=== PATIENT | male | born 2000 | race Caucasian/White ===

== ENCOUNTER 2025-01-27 20:23 | Emergency (ER) | payer OTHER ==
[~2025-01-27] VITALS: Ht 180.3 cm; Wt 105.7 kg
[2025-01-28 07:35] VITALS: BP 144/74; TEMP 97.2; O2SAT 100
[2025-01-28] MEDS ORDERED: ACET-907 PO (08:05)
[2025-01-28] MEDS ORDERED: IBUP-1022 PO (08:05)
[2025-01-28] MEDS ORDERED: LIDO5DIS41 TOP (08:05)
[2025-01-28] MEDS: LIDOCAINE 5% (LIDODERM) PATCH TD ONE (08:12)
[2025-01-28] MEDS: IBUPROFEN 600MG TAB PO ONE (08:13)
[2025-01-28] MEDS: ACETAMINOPHEN 325 MG TAB PO ONE (08:13)
== END 2025-01-28 08:26 | disposition home or self-care (01) ==
LOC: M ED 20:23
DX: S39.012A Strain of muscle, fascia and tendon of lower back, initial encounter (principal); M25.561 Pain in right knee; M25.551 Pain in right hip; Y92.9 Unspecified place or not applicable; Y93.9 Activity, unspecified; Y99.9 Unspecified external cause status; F17.210 Nicotine dependence, cigarettes, uncomplicated; F10.10 Alcohol abuse, uncomplicated; Z79.1 Long term (current) use of non-steroidal anti-inflammatories (NSAID)